=== PATIENT | female | born 1945 | race Caucasian/White ===

== ENCOUNTER → 2016-07-15 08:54 | Day surgery (SDC) | payer MEDICARE, BC ==
[~2016-07-15 08:54] MED LIST: Buffered Lidocaine 1% SYR 3ML* 3 ML/SYR SYRINGE INTRADERM ONE; Dexamethasone IV* 4 MG/ML 1 ML (4 MG) IV SLOW PU ONE; Dexamethasone IV* 4 MG/ML 1 ML (4 MG) ONE; DiMENhydriNATE IV* 50 MG/ML VIAL IV PUSH PRN; Famotidine IV* 10 MG/ML 2 ML (20 mg) IV ONE; Famotidine IV* 10 MG/ML 2 ML (20 mg) ONE; Gelatin ADSORBABLE (OPHTH)* OPHTH.FILM ONE; Gelfoam 12-7 ADSORBABL SPONGE* 1 EA SPONGE ONE; Gelfoam Sponge SIZE 100* SPONGE ONE; HYDROcodone/ACET. 7.5/325 LIQ* 15 ML UDC ONE; Ketorolac INJ* 30 MG/ML 1 ML VIAL ONE; Lidocaine 1% INJ* 10 MG/ML 30 ML SDV ONE; Lidocaine 2% EPI 1:200000 MPF* 20 ML VIAL ONE; Lidocaine 2% PF* 10 ML AMP ONE; Midazolam* 1 MG/ML 2 ML VIAL (2 MG) ONE; Ondansetron INJ* 2 MG/ML VIAL ONE; Oxymetazoline 0.05% NASAL SPR* 15 ML BTL ONE; Propofol* 10 MG/ML 20 ML BTL IV PUSH ONE; Succinylcholine* 20 MG/ML 10 ML VIAL ONE; fentaNYL* 50 MCG/ML 2 ML VIAL (100 MCG VIAL) ONE
[2016-07-15] MEDS: fentaNYL* 50 MCG/ML 2 ML VIAL (100 MCG VIAL) IV PRN ×2 (12:25→13:31)
[2016-07-15 13:31] VITALS: BP 125/54
--- NOTE | 2016-07-16 03:30 | OP ---
OPERATIVE REPORT: DATE OF OPERATION: 07/15/16 - SDS DATE OF : 45 SURGEON: Yuriy Quan MD ANESTHESIOLOGIST: Jeffry Dorsey MD ANESTHESIA: General. PRE-OP DIAGNOSIS: Chronic sinusitis. POST-OP DIAGNOSIS: Chronic sinusitis. OPERATIVE PROCEDURE: 1. Bilateral video endoscopic maxillary antrostomy and removal of tissue. 2. Right side anterior ethmoidectomy, left side anterior and posterior ethmoidectomy and left frontal duct dilatation. BRIEF HISTORY: This 70-year-old with chronic sinusitis had been on oral antibiotics for a prolonged periods of time, oral steroids and continued to be symptomatic. CT scan showed opacification of the sinuses with involvement of the left frontal ethmoid and maxillary sinuses. DESCRIPTION OF PROCEDURE: The patient was taken to the operating room. General anesthesia was given with LMA. Nose was decongested with Afrin placed pledgets. 0- degree telescope, 30-degree telescope and other endoscopic sinus surgery instruments including the balloon sinuplasty instruments were utilized. Initially, we infiltrated 2% lidocaine with epinephrine into the uncinate process on both sides of the middle turbinates on both sides. The uncinate process on the left side had copious amounts of polypoidal hyperplastic mucosa and this was microshaved away. The uncinate process then peeled anteriorly and then microshaved away. The antral opening was completely stenotic and it was enlarged shaving away thick amounts of mucoid material, it was suctioned out from the left maxillary sinus. This was sent for cultures and sensitivity. Then , we used a balloon guidewire to enter the left frontal sinus. The dilatation was carried out at 12 hour pressure at several different spots. Copious irrigation of the frontal sinus was carried out. We then turned our attention to the ethmoids. Microshaver was used to remove the ethmoidal hyperplastic mucosa, polypoidal material within the ethmoid itself towards the lamina papyracea laterally and towards the skull base posteriorly and superiorly into the nasofrontal duct region. The area was impacted with Gelfilm and Gelfoam. We then turned our attention to the right side. Here too the uncinate process was peeled out anteriorly and microshaved away. Antrostomies enlarged. Copious amounts of thick mucous was removed and suctioned out. Then, the anterior ethmoid was carried out with microshaver removing the ethmoidal bulla and coursing towards the lamina papyracea laterally and towards the ground lamella posteriorly. Once adequate resection at anterior ethmoids into the nasofrontal duct area was carried out, the area was packed with Gelfilm and Gelfoam and the spacer between the middle turbinate and lateral nasal wall. The patient awakened, extubated and sent to recovery room in stable condition. Instrument, sponge count correct. Blood loss minimal. [id number]/[facility] #: [id number] [facility]PITALJuan Miguel
== END | disposition home or self-care (01) ==
LOC: OR 08:54
PROVIDERS: ATTEND Otolaryngology
DX: J32.0 Chronic maxillary sinusitis (principal); J32.2 Chronic ethmoidal sinusitis; J34.3 Hypertrophy of nasal turbinates; F17.210 Nicotine dependence, cigarettes, uncomplicated; M19.90 Unspecified osteoarthritis, unspecified site
CPT/HCPCS: 87070; 87077; 87186; 87205; A9270-GY; J0330; J1100; J1885; J2001; J2250; J2405; J2704; J3010